=== PATIENT | male | born 1945 | race Two or more races ===

== ENCOUNTER → 2016-09-20 | Outpatient (CLI) | payer MEDICARE, MEDICAID ==
[~2016-09-20] MED LIST: CREON 101 CA1 PO; LISINOPRIL-HCTZ1 T15 PO; LOSARTAN-HCTZ1 EAC1 PO; [UNRECOGNIZED DRUG - OTHER] PO
--- NOTE | ~2016-09-20 | BD1 ---
[facility] A Service of [facility] RADIOLOGY TEXT RESULTS PATIENT: URBAN COLE LOCATION: [facility] : 41 UNIT #: [id number] AGE: [address]: ERICKA VALDEZ MD SEX: M ORDER DR: [id number] [facility] [address] [place], [place] [address] [id number] O MR#: [id number] Acc #: [id number] NAME: URBAN COLE : 1945 SEX: M STUDY DATE/TIME: 09/20/2016 12:17 UNIT: [facility] ROOM: STUDY DESCRIPTION: BD Dexa Bone Dens 1+ Site Attending Physician: Ericka Valdez M.D. Ordering Physician: Ericka Valdez M.D. Primary Care Physician: Ericka Valdez M.D. MEDICAL IMAGING REPORT This report is preliminary unless electronic signature is present EXAM DXA scan 09/20/2016 HISTORY Osteoporosis screening. FINDINGS Bone mineral density in the lumbar spine from L1-L4 is 0.956 g/cm2 which is 1.2 standard deviations below the mean when compared to the young adult reference population which is characteristic of osteopenia. This is 0.2 standard deviations below the mean when compared to the age-matched population. Bone mineral density in the left femoral neck was 0.965 g/cm2 which is 0.3 standard deviations above the mean when compared to the young adult reference population which is within the range of normal. This is 1.5 standard deviations above the mean when compared to the age-matched population. IMPRESSION Bone mineral density in the lumbar spine characteristic of osteopenia and within the left hip within the range of normal. Dictated by... Edwin Meneses M.D. THIS IS AN ELECTRONICALLY VERIFIED REPORT Edwin Meneses M.D. at 09/21/2016 7:46 AM HERNANDEZ/joanne TD: 09/20/2016 16:26 JOB #: [id number] [facility] A Service of [facility] RADIOLOGY TEXT RESULTS PATIENT: URBAN COLE LOCATION: [facility] : 41 UNIT #: [id number] AGE: [address]: ERICKA VALDEZ MD SEX: M ORDER DR: MEDICAL IMAGING REPORT Page 1 of 1 COPY
== END | disposition home or self-care (01) ==
LOC: CWCC 11:57
DX: Z13.820 Encounter for screening for osteoporosis (principal); M85.88 Other specified disorders of bone density and structure, other site
CPT/HCPCS: 77080